=== PATIENT | male | born 1985 | race Caucasian/White ===

== ENCOUNTER 2025-04-01 10:36 | Emergency (ER) | payer OTHER | END 2025-04-01 11:58 | disposition home or self-care (01) | LOC: MERGE 10:36 → DL.ED 10:36 | DX: S68.111A Complete traumatic metacarpophalangeal amputation of left index finger, initial encounter (principal); W26.8XXA Contact with other sharp object(s), not elsewhere classified, initial encounter; Y93.89 Activity, other specified | CPT/HCPCS: 73140; 99283; 99284; J0665; J2003 ==